=== PATIENT | male | born 1965 | race Caucasian/White ===

== ENCOUNTER 2018-02-13 13:41 | Emergency (ER) | payer OTHER ==
[~2018-02-13 13:41] MED LIST: AUGM875T PO; AZIT250T3 PO; BENZ100 PO; CYCL-36 PO; DIAZ5TAB PO; DICY10 PO; GUAI100S5 PO; IBUP-238 PO; NORC5TAB PO; PRED20 PO; VIAG100T PO; ZOLP10TA3 PO
[2018-02-13 14:13] VITALS: BP 122/78; PULSE 63; RESP 16; TEMP 98.6; O2SAT 100
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
== END 2018-02-13 19:13 | disposition left against medical advice (07) ==
LOC: NED 13:41
DX: S80.01XA Contusion of right knee, initial encounter (principal); V43.72XA Person on outside of car injured in collision with other type car in traffic accident, initial encounter; Y93.89 Activity, other specified
CPT/HCPCS: 73564; 99283